=== PATIENT | male | born 1960 | race Caucasian/White ===

== ENCOUNTER 2019-04-26 06:49 | Day surgery (SDC) | payer BC, MEDICARE ==
[2019-04-21 11:08] VITALS: BMI 28.4
[~2019-04-26 06:49] MED LIST: LIDOCAINE 1% 20 ML VIAL (10MG/ML) FOR IV START INTRADERMA PRN
[2019-04-26 07:25] VITALS: TEMP 97.5
[2019-04-26 07:25] LABS: Glucose,Whole Blood 139 mg/dL (75-99)
[2019-04-26] MEDS: LACTATED RINGERS 1,000 ML IV SCH ×2 (07:25→08:07)
[2019-04-26] MEDS ORDERED: PROPOFOL 10 MG/ML 20 ML VIAL IV ONE (08:06)
--- NOTE | 2019-04-26 08:53 | P.PCN ---
Date of Procedure: 04/26/19 Procedure(s) Performed: Procedure: Total colonoscopy with polypectomy. Preoperative diagnosis: History of polyps for screening for neoplasia. Postoperative diagnosis: 1. Diverticulosis with no evidence of acute diverticulitis or strictures. 2. Two small polyps in the right colon snared. 3. Low-grade internal hemorrhoids not bleeding at the time of this exam. Preparation: HalfLytely prep. Sedation: Was provided by anesthesia. Brief clinical history: The patient is a 58-year-old male who is scheduled for this evaluation for screening for neoplasia because of history of polyps. His last exam was in 2013 and had 3 polyps polyps removed at that time. The patient has no abdominal complaints, bleeding or anemia. Procedure: With the patient on his left lateral decubitus position and after informed consent and adequate sedation, the perianal area was inspected and it did not show any fissures or fistulas. There were no masses felt on digital rectal examination. The Olympus CFH 190L video colonoscope was then inserted in the rectum in the usual fashion and advanced to the cecum. There were 2 small polyps in the right colon, 1 snared and retrieved by suction and one was fulgurated with the snare but there were no large polyps or cancer. Multiple diverticular orifices were seen scattered in the sigmoid and left side with no evidence of acute colitis or strictures. The mucosa appeared healthy. I retroflexed the endoscope in the rectum before the endoscope was withdrawn. Low-grade internal hemorrhoids were noted with no evidence of bleeding. The patient tolerated the procedure well. Plan: The patient was reassured. Discussed dietary measures. He will follow up with you as planned and I recommended repeat exam in 5 years.
[2019-04-26 09:00] VITALS: BP 120/84; PULSE 88; RESP 18
== END 2019-04-26 09:33 | disposition home or self-care (01) ==
LOC: ORWHC2ENDO 06:49
DX: Z12.11 Encounter for screening for malignant neoplasm of colon (principal); D12.2 Benign neoplasm of ascending colon; K64.8 Other hemorrhoids; K57.30 Diverticulosis of large intestine without perforation or abscess without bleeding; I10 Essential (primary) hypertension; F17.200 Nicotine dependence, unspecified, uncomplicated; E78.5 Hyperlipidemia, unspecified; E11.42 Type 2 diabetes mellitus with diabetic polyneuropathy; Z79.84 Long term (current) use of oral hypoglycemic drugs; Z86.010 Personal history of colon polyps; Z79.899 Other long term (current) drug therapy; Z79.82 Long term (current) use of aspirin
CPT/HCPCS: 88305; 45385; J2704

== ENCOUNTER → 2020-01-11 | Outpatient (CLI) | payer BC, MEDICARE ==
--- NOTE | 2020-01-11 12:55 | XR ---
EXAMINATION TYPE: XR foot complete RT DATE OF EXAM: 01/11/2020 CLINICAL HISTORY: Right foot pain with no known injury TECHNIQUE: Frontal, lateral, and oblique images of the right foot are obtained. COMPARISON: None FINDINGS: There is no acute fracture/dislocation evident in the right foot. The joint spaces in the right foot appear aligned. There is osteophytic spurring and joint space narrowing of the distal int erphalangeal joints with opposing surface sclerosis of the first metatarsophalangeal joint. Small matt ntar and mild Achilles heel spurs are seen. Osteophytic spurring of the dorsal midfoot. The overlying soft tissue appears unremarkable. IMPRESSION: There is no acute fracture or dislocation in the right foot. Mild arthropathy of the for efoot and midfoot. Small plantar and Achilles heel spurs.
== END | disposition home or self-care (01) ==
LOC: RADXRMAIN 12:18
PROVIDERS: ATTEND Family Medicine
DX: M12.871 Other specific arthropathies, not elsewhere classified, right ankle and foot (principal)

== ENCOUNTER → 2020-03-23 | Outpatient (CLI) | payer BC, MEDICARE | END | disposition home or self-care (01) | LOC: LABWHC1 10:07 | PROVIDERS: ATTEND Family Medicine | DX: R05 Cough (principal); E11.9 Type 2 diabetes mellitus without complications | CPT/HCPCS: 87635 ==

== ENCOUNTER → 2021-05-20 | Outpatient (CLI) | payer BC ==
--- NOTE | 2021-05-20 13:14 | XR ---
EXAMINATION TYPE: XR chest 2V DATE OF EXAM: 05/20/2021 COMPARISON: 11/04/2016 HISTORY: Shortness of breath with exertion TECHNIQUE: Frontal and lateral views of the chest are obtained. FINDINGS: There is no focal air space opacity, pleural effusion, or pneumothorax seen. The cardiac silhouette size is within normal limits. IMPRESSION: No acute cardiopulmonary process.
== END | disposition home or self-care (01) ==
LOC: RADXRMAIN 11:28
PROVIDERS: ATTEND Family Medicine
DX: R06.02 Shortness of breath (principal)
CPT/HCPCS: 71046

== ENCOUNTER → 2021-09-24 | Day surgery (SDC) | payer BC ==
[2021-09-23 11:12] VITALS: BMI 27.8
[~2021-09-24] MED LIST changes: +ALPRAZolam 0.25 MG TAB PO PRN; +ASPIRIN 325 MG TAB PO PRN; +IOPAMIDOL-250 100ML BTL INTRAARTER ONE; -LIDOCAINE 1% 20 ML VIAL (10MG/ML) FOR IV START INTRADERMA PRN; +LIDOCAINE 1% INJ 10MG/ML (20 ML MDV) ONE; +LIDOCAINE 1% INJ 10MG/ML (20 ML MDV) SQ ONE; +SODIUM CHLORIDE 0.9% 1,000 ML in EMPTY BAG 1 BAG IV ONE; +fentaNYL (PF) 50 MCG/ML 2 ML AMP IV ONE; +fentaNYL (PF) 50 MCG/ML 2 ML AMP ONE
[2021-09-24 07:51] VITALS: RESP 18; TEMP 98
[2021-09-24 07:51] LABS: Glucose,Whole Blood 148 mg/dL (75-99)
[2021-09-24 08:03] LABS: Basophils # (A) 0.1 k/uL (0-0.2); Basophils % (A) 1 %; Eosinophils # (A) 0.1 k/uL (0-0.7); Eosinophils % (A) 2 %; HCT 42.3 % (39.0-53.0); HGB 14.4 gm/dL (13.0-17.5); Lymphocytes # (A) 1.9 k/uL (1.0-4.8); Lymphocytes % (A) 20 %; MCH 31.8 pg (25.0-35.0); MCV 93.5 fL (80.0-100.0); Mean Platelet Volume 7.8; Monocytes # (A) 0.6 k/uL (0-1.0); Monocytes % (A) 6 %; Neutrophils # (A) 6.6 k/uL (1.3-7.7); Neutrophils % (A) 69 %; Platelet Count 282 k/uL (150-450); RBC 4.52 m/uL (4.30-5.90); RDW 12.1 % (11.5-15.5); WBC 9.5 k/uL (3.8-10.6)
[2021-09-24 08:15] LABS: African American GFR (CKD) >90 (>60 ml/min/1.73 sqM); Anion Gap 11 mmol/L; Blood Urea Nitrogen 13 mg/dL (9-20); Carbon Dioxide 26 mmol/L (22-30); Chloride 103 mmol/L (98-107); Glucose 151 mg/dL (74-99); Non-African American GFR(CKD) >90 (>60 ml/min/1.73 sqM); Potassium 4.3 mmol/L (3.5-5.1); Sodium 140 mmol/L (137-145)
[2021-09-24] MEDS: MIDAZOLAM 2 MG/2 ML VIAL IV ONE ×2 (08:39→08:45)
--- NOTE | 2021-09-24 09:15 | P.OP ---
Date of Procedure: 09/24/21 Description of Procedure: Preoperative diagnosis: Bilateral lower extremity claudication worse than the left, [place] classification 3 Postop diagnosis: Disabling claudication [place] classification 3, left common iliac artery focal occlusion Procedure: Aortogram with bilateral lower extremity runoffs via left radial artery access under ultrasound guidance Surgeon: Shen Anesthesia: Moderate sedation times 19 minutes Fluoroscopy time: 2.3 minutes Estimated blood loss: 5 mL Complications: None Condition: Stable Findings: Aorta: Patent without any evidence of significant calcification or stenosis. Bilateral renal arteries are patent without stenosis Iliacs: Right common, internal and external iliac arteries are widely patent with mild atherosclerotic disease without any significant stenosis. Left common iliac artery is occluded just after the takeoff with reconstitution immediately to the external iliac artery. External iliac artery has some atherosclerotic disease without any significant stenosis. The internal iliac artery appears to be occluded at the takeoff. Femorals: Right common femoral, profundus and superficial femoral artery are widely patent without any significant calcification or stenosis. Left common femoral artery has mild stenosis noted just at the distal aspect prior to takeoff of the profundus or superficial femoral artery. Superficial femoral and profundus femoris arteries are widely patent without any significant stenosis or calcification. Popliteal: Widely patent with no evidence of calcification or stenosis. Tibials: Bilateral tibioperoneal trunks are patent with at the stenotic disease noted throughout. Three-vessel runoff bilaterally to the ankle. Operative narrative: After written informed consent was obtained the patient all risks benefits competitions were described the patient is brought to the Pipe Supervisor and laid in a supine position. The area of the left wrist was prepped and draped in the usual sterile fashion. Local anesthesia with moderate sedation was performed with continuous pulse ox monitoring and EKG monitoring. Utilizing ultrasound the left radial artery was visualized and shown to be patent without any significant plaque. Utilizing a multipurpose needle under ultrasound guidance the artery was accessed. Guidewire was placed followed by 5-Hungarian sheath. 035 Glidewire was then placed into the aorta followed by pigtail catheter. Angiogram was then obtained of the aorta. Catheter was then placed at the bifurcation and lower extremity runoffs were obtained. Once completed all guidewires, catheters and sheaths were removed and pressure was placed for hemostasis. Patient tolerated procedure well was sent to PACU for recovery. Patient will require left common iliac artery balloon angioplasty and stenting. There is a flush occlusion noted which may cause some difficulty retrograde therefore Up & Over or brachial artery access may be beneficial. Plan - Discharge Summary Discharge Rx Participant: No New Discharge Prescriptions: No Action oxyCODONE-APAP 10-325MG [Percocet 10-325 mg] 1 tab PO Q4HR PRN PRN Reason: Pain Rosuvastatin [Crestor] 20 mg PO HS Aspirin [Adult Low Dose Aspirin EC] 81 mg PO HS sitaGLIPtin [Januvia] 50 mg PO DAILY Losartan Potassium 100 mg PO DAILY Empagliflozin/Metformin HCl [Synjardy 5-500 mg Tablet] 1 each PO DAILY Umeclidinium Brm/Vilanterol Tr [Anoro Ellipta 62.5-25 Mcg INH] 1 puff INHALATION DAILY Albuterol Sulfate [Proventil Hfa] 1 puff INHALATION Q4-6H PRN PRN Reason: Wheezing Gabapentin [Neurontin] 400 mg PO TID Icosapent Ethyl [Vascepa] 1 gm PO BID Ammonium Lactate Cream [Lac-Hydrin 12% Cream] 1 applic TOPICAL DIRECTED Sildenafil Citrate [Viagra] 100 mg PO ONCE PRN PRN Reason: ed Diltiazem HCl [Diltiazem HCl 12Hr ER] 120 mg PO Q12HR hydroCHLOROthiazide 25 mg PO DAILY amLODIPine [Norvasc] 5 mg PO DAILY Discharge Medication List Aspirin [Adult Low Dose Aspirin EC] 81 mg PO HS 03/24/19 [History] Rosuvastatin [Crestor] 20 mg PO HS 03/24/19 [History] oxyCODONE-APAP 10-325MG [Percocet 10-325 mg] 1 tab PO Q4HR PRN 03/24/19 [History] Albuterol Sulfate [Proventil Hfa] 1 puff INHALATION Q4-6H PRN 09/23/21 [History] Ammonium Lactate Cream [Lac-Hydrin 12% Cream] 1 applic TOPICAL DIRECTED 09/23/21 [History] Diltiazem HCl [Diltiazem HCl 12Hr ER] 120 mg PO Q12HR 09/23/21 [History] Empagliflozin/Metformin HCl [Synjardy 5-500 mg Tablet] 1 each PO DAILY 09/23/21 [History] Gabapentin [Neurontin] 400 mg PO TID 09/23/21 [History] Icosapent Ethyl [Vascepa] 1 gm PO BID 09/23/21 [History] Losartan Potassium 100 mg PO DAILY 09/23/21 [History] Sildenafil Citrate [Viagra] 100 mg PO ONCE PRN 09/23/21 [History] Umeclidinium Brm/Vilanterol Tr [Anoro Ellipta 62.5-25 Mcg INH] 1 puff INHALATION DAILY 09/23/21 [History] hydroCHLOROthiazide 25 mg PO DAILY 09/23/21 [History] sitaGLIPtin [Januvia] 50 mg PO DAILY 09/23/21 [History] amLODIPine [Norvasc] 5 mg PO DAILY 09/24/21 [History] Follow up Appointment(s)/Referral(s): Aashish Gotti DO [STAFF PHYSICIAN] - 2 Weeks Discharge Disposition: HOME SELF-CARE
--- NOTE | 2021-09-24 10:20 | IR ---
EXAMINATION TYPE: IR angio abdominal w runoff DATE OF EXAM: 09/24/2021 CLINICAL HISTORY: PVD. TECHNIQUE: Fluoroscopy. COMPARISON: None. FINDINGS: Fluoroscopic guidance was provided during abdominal angiogram with lower extremity runoff procedure performed by Dr. Gotti. A total of 27.2 minutes of fluoroscopic time was utilized during the procedure and 186 spot images are acquired. Significant stenosis at origin of the left common il iac artery is felt present. Please refer to procedure note for further details as I was not present n or performed procedure. IMPRESSION: As Above.
[2021-09-24 12:01] VITALS: BP 118/76; PULSE 98
== END | disposition home or self-care (01) ==
LOC: CATHCVL 07:25
PROVIDERS: ATTEND Surgery
DX: I70.213 Atherosclerosis of native arteries of extremities with intermittent claudication, bilateral legs (principal); D64.9 Anemia, unspecified; M19.90 Unspecified osteoarthritis, unspecified site; Z85.038 Personal history of other malignant neoplasm of large intestine; I65.23 Occlusion and stenosis of bilateral carotid arteries; E11.40 Type 2 diabetes mellitus with diabetic neuropathy, unspecified; N52.9 Male erectile dysfunction, unspecified; Z20.822 Contact with and (suspected) exposure to COVID-19; E78.00 Pure hypercholesterolemia, unspecified; E78.5 Hyperlipidemia, unspecified; Z87.442 Personal history of urinary calculi; I10 Essential (primary) hypertension; J44.9 Chronic obstructive pulmonary disease, unspecified; Z98.890 Other specified postprocedural states; F17.210 Nicotine dependence, cigarettes, uncomplicated; Z79.84 Long term (current) use of oral hypoglycemic drugs; Z79.82 Long term (current) use of aspirin; Z79.899 Other long term (current) drug therapy
CPT/HCPCS: 36200; 75625; 75716; 76937; 80048; 85025; 87635; C1769 ×2; C1894; J2250; J2001; J3010; Q9966

== ENCOUNTER 2021-10-14 05:52 | Day surgery (SDC) | payer BC ==
[2021-10-10 17:35] VITALS: BMI 27.2
[~2021-10-14 05:52] MED LIST changes: -ALPRAZolam 0.25 MG TAB PO PRN; -IOPAMIDOL-250 100ML BTL INTRAARTER ONE; -LIDOCAINE 1% INJ 10MG/ML (20 ML MDV) ONE; -LIDOCAINE 1% INJ 10MG/ML (20 ML MDV) SQ ONE; -fentaNYL (PF) 50 MCG/ML 2 ML AMP IV ONE; -fentaNYL (PF) 50 MCG/ML 2 ML AMP ONE
[2021-10-14] MEDS ORDERED: SODIUM CHLORIDE 0.9% 1,000 ML IV ONE (06:08)
[2021-10-14 06:20] LABS: Glucose,Whole Blood 155 mg/dL (75-99)
[2021-10-14 06:31] LABS: Basophils % (A) 1 %; Eosinophils # (A) 0.2 k/uL (0-0.7); Eosinophils % (A) 2 %; HCT 39.6 % (39.0-53.0); HGB 13.8 gm/dL (13.0-17.5); Lymphocytes # (A) 1.8 k/uL (1.0-4.8); Lymphocytes % (A) 20 %; MCH 31.6 pg (25.0-35.0); MCHC 34.9 g/dL (31.0-37.0); MCV 90.4 fL (80.0-100.0); Mean Platelet Volume 7.4; Monocytes # (A) 0.5 k/uL (0-1.0); Monocytes % (A) 6 %; Neutrophils # (A) 6.4 k/uL (1.3-7.7); Neutrophils % (A) 72 %; Platelet Count 349 k/uL (150-450); RBC 4.38 m/uL (4.30-5.90); RDW 12.5 % (11.5-15.5); WBC 8.9 k/uL (3.8-10.6)
[2021-10-14 06:36] VITALS: RESP 16; TEMP 99.4
[2021-10-14 06:42] LABS: African American GFR (CKD) >90 (>60 ml/min/1.73 sqM); Anion Gap 13 mmol/L; Blood Urea Nitrogen 18 mg/dL (9-20); Calcium 9.8 mg/dL (8.4-10.2); Carbon Dioxide 26 mmol/L (22-30); Chloride 101 mmol/L (98-107); Glucose 161 mg/dL (74-99); Non-African American GFR(CKD) 87 (>60 ml/min/1.73 sqM); Potassium 3.3 mmol/L (3.5-5.1); Sodium 140 mmol/L (137-145)
[2021-10-14] MEDS ORDERED: HEPARIN SODIUM 1,000 UN/ML (10ML VL) ONE (07:53)
[2021-10-14] MEDS ORDERED: LIDOCAINE 1% INJ 10MG/ML (20 ML MDV) ONE (07:54)
[2021-10-14] MEDS ORDERED: LIDOCAINE 1% INJ 10MG/ML (20 ML MDV) SQ ONE (07:59)
[2021-10-14] MEDS: MIDAZOLAM 2 MG/2 ML VIAL IV ONE ×2 (08:00→08:29)
[2021-10-14] MEDS ORDERED: HYDROmorphone 1 MG/ML 1 ML SYRINGE IVP ONE (08:00)
[2021-10-14] MEDS ORDERED: IOPAMIDOL-250 100ML BTL INTRAARTER ONE ×2 (09:23→09:32)
[2021-10-14] MEDS ORDERED: CLOPIDOGREL 75 MG TAB ONE (09:40)
[2021-10-14] MEDS ORDERED: CLOPIDOGREL 75 MG TAB PO ONE (09:42)
[2021-10-14 15:31] VITALS: BP 129/68; PULSE 88
--- NOTE | 2021-10-14 17:18 | P.OP ---
Date of Procedure: 10/14/21 Preoperative Diagnosis: Left lower extremity disabiling claudication [place] classification 3 Left common iliac artery occlusion Postoperative Diagnosis: Same Procedure(s) Performed: 1. Ultrasound guided bilateral femoral artery access 2. Aortogram with selective iliofemoral angiograms 3. PTBA of the left common iliac artery 4. Kissing stents of bilateral common iliac arteries 5. Percutaneous closure bilateral femoral arteries with Vascade Anesthesia: local, other (conscious sedation x 96mins) Surgeon: Aashish Gotti Estimated Blood Loss (ml): 10 Pathology: none sent Condition: stable Disposition: same day Indications for Procedure: 61 year old gentleman with claudication and previous aortogram with runoff demonstrating left common iliac artery occlusion. He has been having increased pain and discussion for possible intervention with iliac stenting was discussed and he presents for revascularization today. Description of Procedure: After written and informed consent was obtained the patient all risks, benefits and competitions were described the patient is brought to the Engraving Operator and laid in supine position. The area of the groins were prepped and draped in usual sterile fashion. Timeout was performed in normal fashion. Utilizing ultrasound the left common femoral artery was located and shown to be patent with some posterior calcification noted. Utilizing a multipurpose needle and under direct physician of ultrasound the artery was cannulated and a 6-Sammarinese sheath was placed utilizing Seldinger technique. Retrograde angiogram was then obtained demonstrating occlusion of the common iliac artery. 035 Glidewire was then placed followed by a quick cross catheter and attempt to cross the lesion was performed. Were unable across the lesion from retrograde accessed and there was a small dissection at the site of occlusion and therefore ultrasound was then utilized to access the right common femoral artery. Right common femoral artery demonstrated some calcification of the posterior wall. Utilizing ultrasound and a multipurpose needle 6-Sammarinese sheath was then placed in normal fashion. Patient was administered heparin and followed with serial ACTs. Retrograde angiogram was once again obtained demonstrating patent common iliac artery with patent aorta with some distal aortic stenosis and atherosclerotic disease. Both 5 Glidewire followed by a RBI catheter was then placed and the lesion was attempted to be crossed from an antegrade fashion. The lesion was crossed and wire was placed into the common femoral artery on the left. Quick cross catheter was then placed and angiogram was obtained demonstrating good intraluminal access. Balloon angioplasty was then performed with a 6 x 20 mm balloon at the occlusive site of the common iliac artery. Once completed attempt to cross lesion from a retrograde fashion was once again attempted without ability cross and dissection flaps still present. At that time a snare catheter was utilized and the Up & Over wire was snared. The quick cross cath eter was then placed in the left femoral sheath up and over and attempt to get into the aortic lumen was once again performed. We're unable to get into the lumen at that time and therefore a mike wire was placed on the right and extended into the aorta. Aortogram was obtained demonstrating good intraluminal access. Balloon angioplasty of the right common iliac at the site of dissection was then performed and attempt again was placed to get the wire up the aorta. Utilizing the 6 x 20 mm balloon the common iliac artery was occluded and the wire was then placed against the balloon and balloon was utilized to redirect the wire into the aorta. Once the wire was in the aorta was followed with a quick cross catheter and aortogram was obtained demonstrating good intraluminal access. Both wires were then upsized to 035 Glidewire. Kissing balloon angioplasties were then performed with 7 x 40 mm balloon across the lesion on the left and into the distal aorta on the right. Once completed angiogram was obtained demonstrating improvement of the lumen but a large calcified area and stenosis was still present at the bifurcation. Due to this it was determined to place kissing stents. Two 7 x 27 mm balloon expandable VISI pro stents were then chosen and deployed in a kissing fashion up into the distal aspect of the aorta. Once completed final angiogram was obtained demonstrating good brisk flow through both iliac stents. Patient had palpable femoral pulses at the conclusion of the procedure. All wires and guidewires and catheters were removed. Sheath were then removed over a Vascade closure devices. The patient tolerated the procedure well and had palpable DP and PT pulses at the conclusion of the procedure. Plan - Discharge Summary Discharge Rx Participant: No New Discharge Prescriptions: No Action oxyCODONE-APAP 10-325MG [Percocet 10-325 mg] 1 tab PO Q4HR PRN PRN Reason: Pain Rosuvastatin [Crestor] 20 mg PO HS Aspirin [Adult Low Dose Aspirin EC] 81 mg PO HS sitaGLIPtin [Januvia] 50 mg PO DAILY Losartan Potassium 100 mg PO DAILY Empagliflozin/Metformin HCl [Synjardy 5-500 mg Tablet] 1 each PO DAILY Umeclidinium Brm/Vilanterol Tr [Anoro Ellipta 62.5-25 Mcg INH] 1 puff INHALATION DAILY Albuterol Sulfate [Proventil Hfa] 1 puff INHALATION Q4-6H PRN PRN Reason: Wheezing Gabapentin [Neurontin] 400 mg PO TID Icosapent Ethyl [Vascepa] 1 gm PO BID Ammonium Lactate Cream [Lac-Hydrin 12% Cream] 1 applic TOPICAL DIRECTED Sildenafil Citrate [Viagra] 100 mg PO ONCE PRN PRN Reason: ed Diltiazem HCl [Diltiazem HCl 12Hr ER] 120 mg PO Q12HR hydroCHLOROthiazide 25 mg PO DAILY amLODIPine [Norvasc] 5 mg PO DAILY Discharge Medication List Aspirin [Adult Low Dose Aspirin EC] 81 mg PO HS 03/24/19 [History] Rosuvastatin [Crestor] 20 mg PO HS 03/24/19 [History] oxyCODONE-APAP 10-325MG [Percocet 10-325 mg] 1 tab PO Q4HR PRN 03/24/19 [History] Albuterol Sulfate [Proventil Hfa] 1 puff INHALATION Q4-6H PRN 09/23/21 [History] Ammonium Lactate Cream [Lac-Hydrin 12% Cream] 1 applic TOPICAL DIRECTED 09/23/21 [History] Diltiazem HCl [Diltiazem HCl 12Hr ER] 120 mg PO Q12HR 09/23/21 [History] Empagliflozin/Metformin HCl [Synjardy 5-500 mg Tablet] 1 each PO DAILY 09/23/21 [History] Gabapentin [Neurontin] 400 mg PO TID 09/23/21 [History] Icosapent Ethyl [Vascepa] 1 gm PO BID 09/23/21 [History] Losartan Potassium 100 mg PO DAILY 09/23/21 [History] Sildenafil Citrate [Viagra] 100 mg PO ONCE PRN 09/23/21 [History] Umeclidinium Brm/Vilanterol Tr [Anoro Ellipta 62.5-25 Mcg INH] 1 puff INHALATION DAILY 09/23/21 [History] hydroCHLOROthiazide 25 mg PO DAILY 09/23/21 [History] sitaGLIPtin [Januvia] 50 mg PO DAILY 09/23/21 [History] amLODIPine [Norvasc] 5 mg PO DAILY 09/24/21 [History] Follow up Appointment(s)/Referral(s): Aashish Gotti DO [STAFF PHYSICIAN] - 10/22/21 3:30 pm Patient Instructions/Handouts: Procedural Sedation (ED), Peripheral Vascular Stent Placement (DC) Activity/Diet/Wound Care/Special Instructions: No flexing/bending/pushing/pulling/lifting greater than 5 pounds x5 days No driving x3 days No submersion of right and left groins in pools/hot tubs/bath tubs 3 days Fall risk/safety precautions Encourage fluids x2 days Follow up No changes with medications- hold Metformin x48 hours Discharge Disposition: HOME SELF-CARE
--- NOTE | 2021-10-15 09:44 | IR ---
EXAMINATION TYPE: IR stent intravas non coronary DATE OF EXAM: 10/14/2021 COMPARISON: NONE HISTORY: Fluoroscopy time. Fluoroscopy was provided to the referring clinician.
== END 2021-10-14 15:05 | disposition home or self-care (01) ==
LOC: CATHCVL 05:52
PROVIDERS: ATTEND Surgery
DX: I70.213 Atherosclerosis of native arteries of extremities with intermittent claudication, bilateral legs (principal); E11.51 Type 2 diabetes mellitus with diabetic peripheral angiopathy without gangrene; E11.40 Type 2 diabetes mellitus with diabetic neuropathy, unspecified; D64.9 Anemia, unspecified; M19.90 Unspecified osteoarthritis, unspecified site; Z85.038 Personal history of other malignant neoplasm of large intestine; Z20.822 Contact with and (suspected) exposure to COVID-19; I65.29 Occlusion and stenosis of unspecified carotid artery; J44.9 Chronic obstructive pulmonary disease, unspecified; N52.9 Male erectile dysfunction, unspecified; E78.00 Pure hypercholesterolemia, unspecified; E78.5 Hyperlipidemia, unspecified; I10 Essential (primary) hypertension; N20.0 Calculus of kidney; F17.210 Nicotine dependence, cigarettes, uncomplicated
CPT/HCPCS: 37211; 37221 ×2; 80048; 85025; 87635; C1894 ×2; C1773; C1769 ×5; C1725 ×2; C1887; C1876; C1760; J2250; J2001; J1170; J1644; Q9966; 37223

== ENCOUNTER → 2022-05-24 | Outpatient (CLI) | payer BC ==
--- NOTE | 2022-05-24 11:22 | MR ---
EXAMINATION TYPE: MR lumbar spine wo con DATE OF EXAM: 05/24/2022 COMPARISON: 02/10/2014 HISTORY: M54.31 SCIATICA, RIGHT SIDE TECHNIQUE: Multiplanar, multisequence images of the lumbar spine were acquired without IV contrast. 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 L1-L2: Normal disc appearance without desiccation. No herniation, protrusion or disc bulging. No ca nal stenosis is present. Foramina are patent bilaterally. L2-L3: Normal disc appearance without desiccation. No herniation, protrusion or disc bulging. No ca nal stenosis is present. Foramina are patent bilaterally. L3-L4: Mild disc desiccation. Posterior disc bulge. Mild central stenosis. Foramina are patent. L4-L5: Moderate disc desiccation. Moderate posterior disc bulge. Hypertrophy of the ligamentum flavum and facet joint arthropathy contribute to moderate to severe central stenosis. Bilateral foraminal e ncroachment seen. L5-S1: Moderate disc desiccation. Posterior disc bulge with partially encapsulating spur. Effacement ventral thecal sac. Bilateral lateral recess stenosis without central stenosis. Moderate right greate r than left neural foraminal encroachment. Lumbar segments are intact. No paraspinal masses are identified. Conus medullaris has a normal appe arance. IMPRESSION: 1. Multilevel degenerative disc disease. 2. 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 There is progressive central stenosis identified at L3-4 and L4-5.
== END | disposition home or self-care (01) ==
LOC: RADMRIMAIN 09:56
PROVIDERS: ATTEND Family Medicine
DX: M51.16 Intervertebral disc disorders with radiculopathy, lumbar region (principal); M99.73 Connective tissue and disc stenosis of intervertebral foramina of lumbar region
CPT/HCPCS: 72148

== ENCOUNTER 2022-08-18 14:39 | Emergency (ER) | payer BC, MEDICARE ==
[2022-08-18 15:15] VITALS: BP 134/84; PULSE 93; RESP 20; TEMP 97.9
[2022-08-18 15:35] LABS: Basophils % (A) 1 %; Eosinophils # (A) 0.2 k/uL (0-0.7); Eosinophils % (A) 2 %; HGB 12.7 gm/dL (13.0-17.5); Lymphocytes # (A) 0.8 k/uL (1.0-4.8); Lymphocytes % (A) 10 %; MCH 34.6 pg (25.0-35.0); MCHC 35.2 g/dL (31.0-37.0); MCV 98.2 fL (80.0-100.0); Mean Platelet Volume 7.8; Monocytes # (A) 0.4 k/uL (0-1.0); Monocytes % (A) 6 %; Neutrophils # (A) 6.1 k/uL (1.3-7.7); Neutrophils % (A) 81 %; Platelet Count 269 k/uL (150-450); RBC 3.67 m/uL (4.30-5.90); RDW 13.5 % (11.5-15.5); WBC 7.6 k/uL (3.8-10.6)
[2022-08-18 15:46] LABS: ALT 44 U/L (4-49); AST 42 U/L (17-59); African American GFR (CKD) >90 (>60 ml/min/1.73 sqM); Albumin 4.5 g/dL (3.5-5.0); Alkaline Phosphatase 67 U/L (38-126); Anion Gap 11 mmol/L; Blood Urea Nitrogen 9 mg/dL (9-20); Calcium 9.7 mg/dL (8.4-10.2); Carbon Dioxide 26 mmol/L (22-30); Chloride 102 mmol/L (98-107); Glucose 99 mg/dL (74-99); Magnesium 1.7 mg/dL (1.6-2.3); Non-African American GFR(CKD) >90 (>60 ml/min/1.73 sqM); Sodium 139 mmol/L (137-145); Total Bilirubin 0.5 mg/dL (0.2-1.3); Total Protein 6.5 g/dL (6.3-8.2)
[2022-08-18 15:47] LABS: INR 0.9 (<1.2); Partial Thromboplastin Time 23.9 sec (22.0-30.0); Prothrombin Time 10.1 sec (9.0-12.0)
--- NOTE | 2022-08-18 19:31 | ED ---
General Adult HPI - General Chief complaint: Weakness Stated complaint: nausea, weight loss Time Seen by Provider: 08/18/22 19:13 Source: patient, RN notes reviewed Mode of arrival: ambulatory Limitations: no limitations - History of Present Illness Initial comments: This is a pleasant 61-year-old male who presents to the emergency department complaining of generalized tremor and generalized weakness. Patient does have a history of chronic pain to include chronic back pain. However he states there is no pain associated with this. Patient states he has had nausea, occasional vomiting, and poor nutritional intake going on for a few weeks. I do note the patient is drinking coffee in the waiting room at the time I initially see him. Patient states that 2 days ago he started developing a tremor which is affecting both upper extremities. Patient admits to drinking alcohol but states he only drinks a few beers per day. He denies any previous liver or kidney problems. No other new medications or ingestions. Denies illicit drug abuse. No headache, no fever or chills, no changes in vision or hearing, no sore throat or difficulty with speech, no neck pain, no chest pain or shortness of breath, no abdominal pain, no nausea or vomiting, no changes in urination or bowel movements, no numbness or tingling, no extremity pain, no skin rashes or lesions. Past medical, surgical, social, and family history reviewed. - Related Data Home Medications Medication Instructions Recorded Confirmed Aspirin [Adult Low Dose Aspirin EC] 81 mg PO HS 03/24/19 10/14/21 Rosuvastatin [Crestor] 20 mg PO HS 03/24/19 10/14/21 oxyCODONE-APAP 10-325MG [Percocet 1 tab PO Q4HR PRN 03/24/19 10/14/21 10-325 mg] Albuterol Sulfate [Proventil Hfa] 1 puff INHALATION Q4-6H PRN 09/23/21 10/14/21 Ammonium Lactate Cream [Lac-Hydrin 1 applic TOPICAL DIRECTED 09/23/21 10/14/21 12% Cream] Empagliflozin/Metformin HCl 1 each PO DAILY 09/23/21 10/14/21 [Synjardy 5-500 mg Tablet] Gabapentin [Neurontin] 400 mg PO TID 09/23/21 10/14/21 Losartan Potassium 100 mg PO DAILY 09/23/21 10/14/21 Sildenafil Citrate [Viagra] 100 mg PO ONCE PRN 09/23/21 10/14/21 Umeclidinium Brm/Vilanterol Tr 1 puff INHALATION DAILY 09/23/21 10/14/21 [Anoro Ellipta 62.5-25 Mcg INH] dilTIAZem HCL [Diltiazem HCl 12Hr 120 mg PO Q12HR 09/23/21 10/14/21 ER] hydroCHLOROthiazide 25 mg PO DAILY 09/23/21 10/14/21 icosapent ethyL [Vascepa] 1 gm PO BID 09/23/21 10/14/21 sitaGLIPtin [Januvia] 50 mg PO DAILY 09/23/21 10/14/21 amLODIPine [Norvasc] 5 mg PO DAILY 09/24/21 10/14/21 Allergies Allergy/AdvReac Type Severity Reaction Status Date / Time No Known Allergies Allergy Unverified 08/18/22 15:15 Review of Systems ROS Statement: Those systems with pertinent positive or pertinent negative responses have been documented in the HPI. ROS Other: All systems not noted in ROS Statement are negative. Past Medical History Past Medical History: COPD, CVA/TIA, Diabetes Mellitus, Hypertension, Osteoarthritis (OA) Additional Past Medical History / Comment(s): hx of colon polyps, herniated discs with back pain, neuropathy, tia, hemorrhoids, pain in legs. History of Any Multi-Drug Resistant Organisms: None Reported Past Surgical History: Orthopedic Surgery Additional Past Surgical History / Comment(s): colonoscopy, left elbow benign growth removed, varicose veins removed right leg, aortogram 09-24-21 Past Anesthesia/Blood Transfusion Reactions: No Reported Reaction Past Psychological History: No Psychological Hx Reported Smoking Status: Current every day smoker Past Alcohol Use History: Daily Past Drug Use History: None Reported - Past Family History Sister(s) Family Medical History: Cancer General Exam - General Exam Comments Initial Comments: Patient does not appear to be in any significant distress at the time I'm seeing him. Vital signs reviewed. Patient does not appear to be ill or toxic. Patient does have a notable generalized tremor, appears to be both resting and with intent. Effexor also the upper extremities. Cranial nerves II through XII grossly intact otherwise. Limitations: no limitations General appearance: alert, in no apparent distress Head exam: Present: atraumatic, normocephalic, normal inspection Eye exam: Present: normal appearance, PERRL, EOMI. Absent: scleral icterus, conjunctival injection, periorbital swelling ENT exam: Present: normal exam, normal oropharynx, mucous membranes moist, normal external ear exam Neck exam: Present: normal inspection, full ROM. Absent: tenderness, meningismus, lymphadenopathy Respiratory exam: Present: normal lung sounds bilaterally. Absent: respiratory distress, wheezes, rales, rhonchi, stridor Cardiovascular Exam: Present: regular rate, normal rhythm, normal heart sounds. Absent: systolic murmur, diastolic murmur, rubs, gallop, clicks GI/Abdominal exam: Present: soft, normal bowel sounds. Absent: distended, tenderness, guarding, rebound, rigid Extremities exam: Present: normal inspection, full ROM, normal capillary refill. Absent: tenderness, pedal edema, joint swelling, calf tenderness Back exam: Present: normal inspection Neurological exam: Present: alert, oriented X3, CN II-XII intact, normal gait, other (Generalized tremor). Absent: motor sensory deficit Psychiatric exam: Present: normal affect, normal mood Skin exam: Present: warm, dry, intact, normal color. Absent: rash Course Vital Signs 08/18/22 15:12 Temperature 97.9 F Pulse Rate 93 Respiratory 20 Rate Blood Pressure 134/84 O2 Sat by Pulse 99 Oximetry - Reevaluation(s) Reevaluation #1: 08/18/22 21:19 Patient reevaluated, patient resting comfortably in the room. Patient notably does not have as much tremors had in the waiting room. No vomiting. Patient able to hold down fluids. EKG Findings - EKG Comments: EKG Findings:: EKG done at EKG done at 1516 reveals sinus rhythm with occasional supraventricular PACs. Right bundle-branch block, rate of 87, QRS duration 125 ms, remainder of the intervals are normal. Borderline right axis deviation. No evidence of acute ST or T-wave changes. No comparison study reviewed the ED attending physician. Medical Decision Making - Medical Decision Making Generalized weakness, poor nutritional intake with intermittent nausea and vomiting going on for quite some time. Tremor started 2 days ago. This does raise a suspicion of nutritional deficiency. Other etiologies less likely. Patient does not appear to have any focal neurological deficits. Patient reevaluated prior to discharge and is in no acute distress. I'm going to give the patient short course of Ativan and Zofran. Patient to follow-up with his regular physician and neurology. The case was discussed in detail with ED attending physician. Presentation, findings, treatment plan discussed in detail. Procurement Manager Dr. Pritchard - Lab Data Result diagrams: 08/18/22 20:08 08/18/22 20:08 Lab Results 08/18/22 08/18/22 08/18/22 Range/Units 15:16 15:16 15:16 WBC 7.6 (3.8-10.6) k/uL RBC 3.67 L (4.30-5.90) m/uL Hgb 12.7 L (13.0-17.5) gm/dL Hct 36.0 L (39.0-53.0) % MCV 98.2 (80.0-100.0) fL MCH 34.6 (25.0-35.0) pg MCHC 35.2 (31.0-37.0) g/dL RDW 13.5 (11.5-15.5) % Plt Count 269 (150-450) k/uL MPV 7.8 Neutrophils % 81 % Lymphocytes % 10 % Monocytes % 6 % Eosinophils % 2 % Basophils % 1 % Neutrophils # 6.1 (1.3-7.7) k/uL Lymphocytes # 0.8 L (1.0-4.8) k/uL Monocytes # 0.4 (0-1.0) k/uL Eosinophils # 0.2 (0-0.7) k/uL Basophils # 0.0 (0-0.2) k/uL PT 10.1 (9.0-12.0) sec INR 0.9 (<1.2) APTT 23.9 (22.0-30.0) sec Sodium 139 (137-145) mmol/L Potassium 4.0 (3.5-5.1) mmol/L Chloride 102 (98-107) mmol/L Carbon Dioxide 26 (22-30) mmol/L Anion Gap 11 mmol/L BUN 9 (9-20) mg/dL Creatinine 0.66 (0.66-1.25) mg/dL Est GFR (CKD-EPI)AfAm >90 (>60 ml/min/1.73 sqM) Est GFR (CKD-EPI)NonAf >90 (>60 ml/min/1.73 sqM) Glucose 99 (74-99) mg/dL Calcium 9.7 (8.4-10.2) mg/dL Phosphorus (2.5-4.5) mg/dL Magnesium 1.7 (1.6-2.3) mg/dL Total Bilirubin 0.5 (0.2-1.3) mg/dL GGT (15-73) U/L AST 42 (17-59) U/L ALT 44 (4-49) U/L Alkaline Phosphatase 67 (38-126) U/L Ammonia (<30) umol/L Troponin I (0.000-0.034) ng/mL Total Protein 6.5 (6.3-8.2) g/dL Albumin 4.5 (3.5-5.0) g/dL 08/18/22 08/18/22 08/18/22 Range/Units 15:16 20:08 20:08 WBC 8.0 (3.8-10.6) k/uL RBC 3.80 L (4.30-5.90) m/uL Hgb 12.7 L (13.0-17.5) gm/dL Hct 37.1 L (39.0-53.0) % MCV 97.6 (80.0-100.0) fL MCH 33.5 (25.0-35.0) pg MCHC 34.3 (31.0-37.0) g/dL RDW 14.0 (11.5-15.5) % Plt Count 282 (150-450) k/uL MPV 8.1 Neutrophils % 78 % Lymphocytes % 12 % Monocytes % 6 % Eosinophils % 2 % Basophils % 1 % Neutrophils # 6.3 (1.3-7.7) k/uL Lymphocytes # 0.9 L (1.0-4.8) k/uL Monocytes # 0.5 (0-1.0) k/uL Eosinophils # 0.1 (0-0.7) k/uL Basophils # 0.0 (0-0.2) k/uL PT 10.1 (9.0-12.0) sec INR 0.9 (<1.2) APTT 24.0 (22.0-30.0) sec Sodium (137-145) mmol/L Potassium (3.5-5.1) mmol/L Chloride (98-107) mmol/L Carbon Dioxide (22-30) mmol/L Anion Gap mmol/L BUN (9-20) mg/dL Creatinine (0.66-1.25) mg/dL Est GFR (CKD-EPI)AfAm (>60 ml/min/1.73 sqM) Est GFR (CKD-EPI)NonAf (>60 ml/min/1.73 sqM) Glucose (74-99) mg/dL Calcium (8.4-10.2) mg/dL Phosphorus (2.5-4.5) mg/dL Magnesium (1.6-2.3) mg/dL Total Bilirubin (0.2-1.3) mg/dL GGT (15-73) U/L AST (17-59) U/L ALT (4-49) U/L Alkaline Phosphatase (38-126) U/L Ammonia (<30) umol/L Troponin I <0.012 (0.000-0.034) ng/mL Total Protein (6.3-8.2) g/dL Albumin (3.5-5.0) g/dL 08/18/22 08/18/22 08/18/22 Range/Units 20:08 20:08 20:08 WBC (3.8-10.6) k/uL RBC (4.30-5.90) m/uL Hgb (13.0-17.5) gm/dL Hct (39.0-53.0) % MCV (80.0-100.0) fL MCH (25.0-35.0) pg MCHC (31.0-37.0) g/dL RDW (11.5-15.5) % Plt Count (150-450) k/uL MPV Neutrophils % % Lymphocytes % % Monocytes % % Eosinophils % % Basophils % % Neutrophils # (1.3-7.7) k/uL Lymphocytes # (1.0-4.8) k/uL Monocytes # (0-1.0) k/uL Eosinophils # (0-0.7) k/uL Basophils # (0-0.2) k/uL PT (9.0-12.0) sec INR (<1.2) APTT (22.0-30.0) sec Sodium 140 (137-145) mmol/L Potassium 3.7 (3.5-5.1) mmol/L Chloride 104 (98-107) mmol/L Carbon Dioxide 24 (22-30) mmol/L Anion Gap 12 mmol/L BUN 8 L (9-20) mg/dL Creatinine 0.63 L (0.66-1.25) mg/dL Est GFR (CKD-EPI)AfAm >90 (>60 ml/min/1.73 sqM) Est GFR (CKD-EPI)NonAf >90 (>60 ml/min/1.73 sqM) Glucose 129 H (74-99) mg/dL Calcium 9.6 (8.4-10.2) mg/dL Phosphorus 3.5 (2.5-4.5) mg/dL Magnesium 1.8 (1.6-2.3) mg/dL Total Bilirubin 0.7 (0.2-1.3) mg/dL GGT 98 H (15-73) U/L AST 38 (17-59) U/L ALT 43 (4-49) U/L Alkaline Phosphatase 66 (38-126) U/L Ammonia 15 (<30) umol/L Troponin I <0.012 (0.000-0.034) ng/mL Total Protein 6.5 (6.3-8.2) g/dL Albumin 4.5 (3.5-5.0) g/dL - Radiology Data Radiology results: report reviewed, image reviewed Disposition Clinical Impression: Tremor observed on examination, Gastritis Disposition: HOME SELF-CARE Condition: Stable Instructions (If sedation given, give patient instructions): Gastritis (ED), Tremors (ED) Additional Instructions: Call tomorrow morning at 8 AM to schedule plan with your primary care physician and the neurologist as discussed. Follow-up with your regular physician as sharla weiner. Return to the ER immediately if any symptoms worsen, new symptoms arise, or any other problems develop. Is patient prescribed a controlled substance at d/c from ED?: No Referrals: Baldomero Jacobo DO [Primary Care Provider] - 1-2 days Marlon Don MD [STAFF PHYSICIAN] - 08/20/22 Time of Disposition: 21:20
--- NOTE | 2022-08-18 19:58 | XR ---
EXAMINATION TYPE: XR chest 1V portable DATE OF EXAM: 08/18/2022 COMPARISON: 05/20/2021 HISTORY: Altered mental status TECHNIQUE: Single view FINDINGS: Heart is normal. Lungs are clear of infiltrate. No heart failure. There are no hilar masses . The bony thorax is intact. IMPRESSION: Normal chest. No change.
[2022-08-18 20:13] LABS: Basophils % (A) 1 %; Eosinophils # (A) 0.1 k/uL (0-0.7); Eosinophils % (A) 2 %; HCT 37.1 % (39.0-53.0); HGB 12.7 gm/dL (13.0-17.5); Lymphocytes # (A) 0.9 k/uL (1.0-4.8); Lymphocytes % (A) 12 %; MCH 33.5 pg (25.0-35.0); MCHC 34.3 g/dL (31.0-37.0); MCV 97.6 fL (80.0-100.0); Mean Platelet Volume 8.1; Monocytes # (A) 0.5 k/uL (0-1.0); Monocytes % (A) 6 %; Neutrophils # (A) 6.3 k/uL (1.3-7.7); Neutrophils % (A) 78 %; Platelet Count 282 k/uL (150-450)
[2022-08-18 20:21] LABS: INR 0.9 (<1.2); Prothrombin Time 10.1 sec (9.0-12.0)
[2022-08-18] MEDS ORDERED: MAGNESIUM SULFATE-D5W PMX 1 GM in DEXTROSE/WATER 1 100ML.BAG IVPB ONE (20:21)
[2022-08-18 20:22] LABS: ALT 43 U/L (4-49); AST 38 U/L (17-59); African American GFR (CKD) >90 (>60 ml/min/1.73 sqM); Albumin 4.5 g/dL (3.5-5.0); Alkaline Phosphatase 66 U/L (38-126); Anion Gap 12 mmol/L; Blood Urea Nitrogen 8 mg/dL (9-20); Calcium 9.6 mg/dL (8.4-10.2); Carbon Dioxide 24 mmol/L (22-30); Chloride 104 mmol/L (98-107); GGT 98 U/L (15-73); Glucose 129 mg/dL (74-99); Magnesium 1.8 mg/dL (1.6-2.3); Non-African American GFR(CKD) >90 (>60 ml/min/1.73 sqM); Phosphorus 3.5 mg/dL (2.5-4.5); Potassium 3.7 mmol/L (3.5-5.1); Sodium 140 mmol/L (137-145); Total Bilirubin 0.7 mg/dL (0.2-1.3); Total Protein 6.5 g/dL (6.3-8.2)
[2022-08-18] MEDS ORDERED: LORazepam 1 MG TAB PO STA (20:54)
--- NOTE | 2022-08-18 21:08 | CT ---
EXAMINATION TYPE: CT brain wo con DATE OF EXAM: 08/18/2022 COMPARISON: None HISTORY: New onset tremor CT DLP: 1200.4 mGycm Automated exposure control for dose reduction was used. Images of the brain obtained with no contrast. There is mild cerebral atrophy. There is no mass effect or midline shift. No sign of intracranial hem orrhage. The calvarium is intact. There is normal aeration of the mastoid sinuses. IMPRESSION: Negative unenhanced head CT scan. Mild atrophy.
[2022-08-18 21:20] LABS: Appearance,Urine Clear (Clear); Bilirubin,Urine Negative (Negative); Blood,Urine Negative (Negative); Color,Urine Yellow; Glucose,Urine (UA) 4+ (Negative); Ketones,Urine Trace (Negative); Leukocyte Esterase,Urine Negative (Negative); Nitrite,Urine Negative (Negative); Protein,Urine Trace (Negative); Specific Gravity,Urine 1.031 (1.001-1.035); Urobilinogen,Urine <2.0 mg/dL (<2.0)
[2022-08-18] MEDS ORDERED: ONDANSETRON 4 MG ODT STARTER PACK 2 TAB BTL PO STA (21:23)
[2022-08-18 21:30] LABS: Amphetamine Screen,Urine Not Detected (NotDetected); Barbiturate Screen,Urine Not Detected (NotDetected); Benzodiazepines Screen,Urine Not Detected (NotDetected); Cocaine Screen,Urine Not Detected (NotDetected); Methadone Screen, Urine Not Detected (NotDetected); Opiate Screen,Urine Not Detected (NotDetected); Oxycodone Screen, Urine Not Detected (NotDetected); Phencyclidine Screen,Urine Not Detected (NotDetected); Tricyclic Antidepressant,Urine Not Detected (NotDetected); Urn Cannabinoid Scrn Not Detected (NotDetected)
== END 2022-08-19 05:25 | disposition home or self-care (01) ==
LOC: EC 14:39
DX: K29.70 Gastritis, unspecified, without bleeding (principal); R25.1 Tremor, unspecified; Z86.73 Personal history of transient ischemic attack (TIA), and cerebral infarction without residual deficits; E11.9 Type 2 diabetes mellitus without complications; I10 Essential (primary) hypertension; F17.200 Nicotine dependence, unspecified, uncomplicated
CPT/HCPCS: 36415; 93005; 80053; 82140; 82977; 83735; 84100; 84484; 85025; 85610; 85730; 81003; 80306; 71045; 70450; 99285; 96365; J3475

== ENCOUNTER → 2022-08-22 | Outpatient (CLI) | payer BC, MEDICARE | END | disposition home or self-care (01) | LOC: LABWHC1 11:25 | DX: Z01.812 Encounter for preprocedural laboratory examination (principal) | CPT/HCPCS: 87070 ==

== ENCOUNTER → 2022-09-29 | Outpatient (CLI) | payer BC, MEDICARE ==
--- NOTE | 2022-09-29 12:18 | XR ---
EXAMINATION TYPE: XR lumbar spine 2 or 3V DATE OF EXAM: 09/29/2022 CLINICAL HISTORY: pain TECHNIQUE: Three views of the lumbar spine are submitted. COMPARISON: None. FINDINGS: There are 5 lumbar type vertebral bodies identified. The lumbar spine shows satisfactory alignment w ithout evidence of acute fracture or dislocation. Vertebral body heights are within normal limits. Mild scattered degenerative disc space narrowing and spondylosis. The overlying soft tissue appears unremarkable. IMPRESSION: No acute fracture or dislocation is seen in the lumbar spine. ICD 10 NO FRACTURE, INITIAL EVALUATION
== END | disposition home or self-care (01) ==
LOC: RADXRMAIN 11:31
DX: M54.16 Radiculopathy, lumbar region (principal)
CPT/HCPCS: 72100

== ENCOUNTER 2023-04-08 19:10 | Emergency (ER) | payer BC, MEDICARE ==
[2023-04-08 19:39] VITALS: BP 101/63; PULSE 101; RESP 20; TEMP 97.5
[2023-04-08] MEDS ORDERED: DIPH,PERTUS(ACELL)TETVAC-LF 0.5 ML VIAL IM ONE (20:34)
[2023-04-08] MEDS ORDERED: LIDOCAINE 1% INJ 10MG/ML (30 ML VIAL-PF) SQ ONE (20:34)
--- NOTE | 2023-04-08 20:38 | ED ---
General Adult HPI - General Chief complaint: Fall Stated complaint: rt foot laceration Time Seen by Provider: 04/08/23 20:02 Source: patient, RN notes reviewed, old records reviewed Mode of arrival: wheelchair Limitations: no limitations - History of Present Illness Initial comments: Well-appearing 62-year-old male presents to the emergency room with laceration to his right great toe. States that he was walking through the grass when he sustained the injury. States does have a stress fracture in the foot and has foot drop which caused the injury today. He did go to the urgent care was bandaged recommended to come to the emergency room due to the depth of the laceration. Denies any other injuries. Unsure of his tetanus shot is up-to-date. Does take an aspirin a day. -: hour(s) Location: right, lower extremity (great toe) Radiation: non-radiation Severity scale (1-10): 1 Consistency: now resolved Improves with: rest Associated Symptoms: denies other symptoms Treatments Prior to Arrival: other (urgent care dressing) - Related Data Home Medications Medication Instructions Recorded Confirmed Aspirin [Adult Low Dose Aspirin EC] 81 mg PO HS 03/24/19 08/18/22 Rosuvastatin [Crestor] 20 mg PO HS 03/24/19 08/18/22 oxyCODONE-APAP 10-325MG [Percocet 1 tab PO Q4HR PRN 03/24/19 08/18/22 10-325 mg] Albuterol Sulfate [Proventil Hfa] 2 puff INHALATION RT-Q6H PRN 09/23/21 08/18/22 Empagliflozin/Metformin HCl 2 tab PO BID 09/23/21 08/18/22 [Synjardy 5-500 mg Tablet] Losartan Potassium 100 mg PO DAILY 09/23/21 08/18/22 Umeclidinium Brm/Vilanterol Tr 1 puff INHALATION RT-DAILY 09/23/21 08/18/22 [Anoro Ellipta 62.5-25 Mcg INH] dilTIAZem HCL [Diltiazem HCl 12Hr 120 mg PO Q12HR 09/23/21 08/18/22 ER] hydroCHLOROthiazide 25 mg PO DAILY 09/23/21 08/18/22 Nicotine 21Mg/24Hr Patch [Habitrol] 1 patch TRANSDERM DAILY PRN 08/18/22 08/18/22 buPROPion SR [Wellbutrin SR] 150 mg PO BID 08/18/22 08/18/22 Previous Rx's Medication Instructions Recorded Cephalexin [Keflex] 500 mg PO Q6HR 5 Days #20 cap 04/08/23 Allergies Allergy/AdvReac Type Severity Reaction Status Date / Time No Known Allergies Allergy Verified 04/08/23 19:39 Review of Systems ROS Statement: Those systems with pertinent positive or pertinent negative responses have been documented in the HPI. ROS Other: All systems not noted in ROS Statement are negative. Past Medical History Past Medical History: COPD, CVA/TIA, Diabetes Mellitus, Hypertension, Osteoarthritis (OA) Additional Past Medical History / Comment(s): hx of colon polyps, herniated discs with back pain, neuropathy, tia, hemorrhoids, pain in legs. History of Any Multi-Drug Resistant Organisms: None Reported Past Surgical History: Orthopedic Surgery Additional Past Surgical History / Comment(s): colonoscopy, left elbow benign growth removed, varicose veins removed right leg, aortogram 09-24-21 Past Anesthesia/Blood Transfusion Reactions: No Reported Reaction Past Psychological History: No Psychological Hx Reported Smoking Status: Current every day smoker Past Alcohol Use History: Daily Past Drug Use History: None Reported - Past Family History Sister(s) Family Medical History: Cancer General Exam Limitations: no limitations General appearance: alert, in no apparent distress Head exam: Present: atraumatic, normocephalic, normal inspection Eye exam: Present: normal appearance. Absent: scleral icterus, conjunctival injection, periorbital swelling Respiratory exam: Absent: respiratory distress, accessory muscle use Cardiovascular Exam: Present: tachycardia Right Foot/Toe exam: Present: laceration (Approximately 2 cm laceration to the dorsal surface of great toe, no active bleeding.) Neurovascular tendon exam: Present: no vascular compromise. Absent: abnormal cap refill, extremity cold to touch, pallor Neurological exam: Present: alert, oriented X3 Psychiatric exam: Present: normal affect, normal mood Skin exam: Present: warm, dry, normal color. Absent: cyanosis, diaphoretic, pallor Course Vital Signs 04/08/23 19:35 Temperature 97.5 F L Pulse Rate 101 H Respiratory 20 Rate Blood Pressure 101/63 O2 Sat by Pulse 98 Oximetry Procedures - Laceration Laceration #1 Consent Obtained: verbal consent Indication: laceration Site: foot (right great toe) Size (cm): 3 Description: linear Depth: simple, single layer Anesthetic Used: lidocaine 1% Anesthesia Technique: local infiltration Pre-repair: wound explored, irrigated extensively Type of Sutures: nylon Size of Sutures: 4-0 Number of Sutures: 8 Technique: simple, interrupted Patient Tolerated Procedure: well, no complications Medical Decision Making - Medical Decision Making Was pt. sent in by a medical professional or institution (FLORENTIN Carmona, MUSICAL IN[employer]UMENTS ASSEMBLER, urgent care, hospital, or detention...) When possible be specific @ -urgent care Did you speak to anyone other than the patient for history (EMS, parent, family, police, friend...)? What history was obtained from this source @ -no Did you review nursing and triage notes (agree or disagree)? Why? @ -I reviewed and agree with nursing and triage notes Were old charts reviewed (outside hosp., previous admission, EMS record, old EKG, old radiological studies, urgent care reports/EKG's, detention records)? Report findings @ -No old charts were reviewed Differential Diagnosis (chest pain, altered mental status, abdominal pain women, abdominal pain men, vaginal bleeding, weakness, fever, dyspnea, syncope, headache, dizziness, GI bleed, back pain, seizure, CVA, palpatations, mental health, musculoskeletal)? @ -Laceration, fracture, abrasion, foreign body EKG interpreted by me (3pts min.). @ -n/a X-rays interpreted by me (1pt min.). @ -Yes, X-ray interpreted by me shows no evidence of fracture or foreign body. CT interpreted by me (1pt min.). @ -None done U/S interpreted by me (1pt. min.). @ -None done What testing was considered but not performed or refused? (CT, X-rays, U/S, labs)? Why? @ -None What meds were considered but not given or refused? Why? @ -None Did you discuss the management of the patient with other professionals (professionals i.e. FLORENTIN Carmona, [employer]ICAL IN[employer]UMENTS ASSEMBLER, lab, RT, psych nurse, social science manager, research psychologist, teacher, equal employment opportunity officer, showcase trimmer)? Give summary @ -No Was smoking cessation discussed for >3mins.? @ -No Was critical care preformed (if so, how long)? @ -No Were there social determinants of health that impacted care today? How? (Homelessness, low income, unemployed, alcoholism, drug addiction, transportation, low edu. Level, literacy, decrease access to med. care, correction, rehab)? @ -No Was there de-escalation of care discussed even if they declined (Discuss DNR or withdrawal of care, Hospice)? DNR status @ -No What co-morbidities impacted this encounter? (DM, HTN, Smoking, COPD, CAD, Cancer, CVA, ARF, Chemo, Hep., AIDS, mental health diagnosis, sleep apnea, morbid obesity)? @ -COPD, CVA, diabetes, hypertension, neuropathy, smoker Was patient admitted / discharged? Hospital course, mention meds given and route, prescriptions, significant lab abnormalities, going to OR and other pertinent info. @ -Discharged 62-year-old male presents with approximately 3cm laceration to his right great toe just below the nailbed. States that he was walking through the grass when he sustained the injury. States does foot drop which caused the injury today. Sent by urgent care due to depth on laceration. Wound was irrigated copiously with 500 mL of saline. 8 sutures to close the laceration. Patient was given a dose and prescribed Keflex. Tetanus shot was updated. Patient states he has decreased sensation due to neuropathy. X-ray interpreted by me shows no evidence of fracture or foreign body. Radiologist impression no evidence of acute osseous pathology. Minimal soft tissue swelling of the first digit. Joints preserved. Vascular sclerosis. Dorsal midfoot osteophytosis. Suggested 2 mm linear radiopaque foreign body within the plantar aspect of the forefoot only on the lateral view. No evidence of foreign body on physical exam. Bacitracin dressing was applied and patient was directed to follow up with his primary care doctor this week for reevaluation. Return to the emergency room with a [place] concerning symptoms. Patient can remember agreeable to this plan of care. Case discussed with Dr. Pinedo Undiagnosed new problem with uncertain prognosis? @ -No Drug Therapy requiring intensive monitoring for toxicity (Heparin, Nitro, Insulin, Cardizem)? @ -No Were any procedures done? @ -Laceration repair Diagnosis/symptom? @ -Right great toe laceration Acute, or Chronic, or Acute on Chronic? @ -Acute Uncomplicated (without systemic symptoms) or Complicated (systemic symptoms)? @ -Uncomplicated Side effects of treatment? @ -No Exacerbation, Progression, or Severe Exacerbation? @ -No Poses a threat to life or bodily function? How? (Chest pain, [place], [place], pneumonia, PE, COPD, DKA, ARF, appy, cholecystitis, CVA, Diverticulitis, Homicidal, Suicidal, threat to staff... and all critical care pts) @ -No Disposition Clinical Impression: Toe laceration Disposition: HOME SELF-CARE Condition: Good Instructions (If sedation given, give patient instructions): Care For Your Stitches (ED), Laceration (ED) Additional Instructions: Keep wound clean and dry. Place a Thin layer of bacitracin on wound daily for the next 2 days. Follow-up with the primary care doctor in 12-14 days for suture removal. Take antibiotics as prescribed to prevent infection. Return to the emergency room if any new or concerning symptoms. l Prescriptions: Cephalexin [Keflex] 500 mg PO Q6HR 5 Days #20 cap Is patient prescribed a controlled substance at d/c from ED?: No Referrals: Baldomero Jacobo DO [Primary Care Provider] - 1-2 days Time of Disposition: 21:37
--- NOTE | 2023-04-08 21:13 | XR ---
EXAMINATION TYPE: XR toes RT DATE OF EXAM: 04/08/2023 9:01 PM INDICATION: Patient age:Male; 62 years old; Reason for study: great toe; PHH. COMPARISON: Right foot radiograph 01/11/2020 TECHNIQUE: The first digit of the right foot was examined in the AP, oblique, and lateral projections . FINDINGS/IMPRESSION: No evidence of any acute osseous pathology. Minimal soft tissue swelling of the first digit. Joints are preserved. Vascular sclerosis. Dorsal midfoot osteophytosis. There is suggested 2 mm linear radio paque foreign body within the plantar aspect of the forefoot only on the lateral view. Clinical corre lation is recommended.
[2023-04-08] MEDS ORDERED: CEPHALEXIN 500 MG CAP PO STA (21:34)
[2023-04-08] MEDS ORDERED: BACITRACIN OINT 1 EACH PACKET TOPICAL ONE (21:50)
== END 2023-04-08 22:36 | disposition home or self-care (01) ==
LOC: EC 19:10
DX: S91.119A Laceration without foreign body of unspecified toe without damage to nail, initial encounter (principal); J44.9 Chronic obstructive pulmonary disease, unspecified; E11.9 Type 2 diabetes mellitus without complications; I10 Essential (primary) hypertension; M19.90 Unspecified osteoarthritis, unspecified site; Z86.73 Personal history of transient ischemic attack (TIA), and cerebral infarction without residual deficits; F17.200 Nicotine dependence, unspecified, uncomplicated; Z79.82 Long term (current) use of aspirin; Z79.899 Other long term (current) drug therapy; Z79.84 Long term (current) use of oral hypoglycemic drugs; Z23 Encounter for immunization; W01.0XXA Fall on same level from slipping, tripping and stumbling without subsequent striking against object, initial encounter
CPT/HCPCS: 73660; 90715; 99284; 90471; 12002; J2001

== ENCOUNTER → 2023-09-21 | Outpatient (CLI) | payer BC, MEDICARE ==
--- NOTE | 2023-09-21 09:49 | CTL ---
EXAMINATION TYPE: CT Low Dose Lung DATE OF EXAM ORDERED: 09/21/2023 HISTORY: Z12.2,Z87.891. Lung cancer screening. Current smoker, [address] DLP: 71.[address] CTDI: 2.3 mGy Automated exposure control for dose reduction was used. SCREENING VISIT: First screening visit COMPARISON: Chest radiograph 08/18/2022 TECHNIQUE: Low dose computed tomography scan was performed through the chest at 1 mm thick sections a nd reconstructed images in multiple planes at 1 mm and [address] DIAGNOSTIC QUALITY: Satisfactory FINDINGS: LUNG NODULES: Left lower lobe 4 mm pulmonary nodule (series 6, image 38). Medial right upper lobe 3 m m pulmonary nodule (series 6, image 21). Right middle lobe 3 mm pulmonary nodule (series 6, image 39) . LUNGS: COPD: Severity: Mild Fibrosis: Severity: None Lymph nodes: None Other findings: None RIGHT PLEURAL SPACE: Effusion: None Calcification: None Thickening: None Pneumothorax: None LEFT PLEURAL SPACE: Effusion: None Calcification: None Thickening: None Pneumothorax: None HEART: Heart Size: Normal Coronary Calcification: Small Pericardial Effusion: None OTHER FINDINGS: Upper abdomen: None Bony thorax: Multilevel degenerative changes of the thoracic spine. Supraclavicular region: None Other: None IMPRESSION: Few scattered pulmonary nodules measuring up to [address] LUNG RAD AND CT CHEST RECOMMENDATION: Lung-Rad 2 Benign Appearance or Behavior: Continue annual sc reening with LDCT in 12 months. S Modifier (other clinically significant findings): None
== END | disposition home or self-care (01) ==
LOC: RADCTMAIN 08:30
PROVIDERS: ATTEND Family Medicine
DX: Z12.2 Encounter for screening for malignant neoplasm of respiratory organs (principal); F17.210 Nicotine dependence, cigarettes, uncomplicated; R91.8 Other nonspecific abnormal finding of lung field
CPT/HCPCS: 71271

== ENCOUNTER → 2024-05-20 | Outpatient (CLI) | payer BC ==
--- NOTE | 2024-05-20 10:07 | XR ---
EXAMINATION TYPE: XR ribs LT w pa chest xray DATE OF EXAM: 05/20/2024 COMPARISON: 08/18/2022 INDICATION: Fall, left rib pain TECHNIQUE: Single frontal view of the chest is obtained. Left ribs are examined in 2 projections. FINDINGS: The heart size is normal. The pulmonary vasculature is normal. The lungs are clear. Left RIBS: No displaced rib fractures are evident. No pneumothorax is evident. Follow-up can be perfo rmed as clinically indicated. IMPRESSION: 1. No acute pulmonary process. 2. No acute left rib fractures identified.
== END | disposition home or self-care (01) ==
LOC: RADXRMAIN 09:13
PROVIDERS: ATTEND Family Medicine
DX: Z00.00 Encounter for general adult medical examination without abnormal findings (principal); R07.81 Pleurodynia; W19.XXXA Unspecified fall, initial encounter

== ENCOUNTER → 2024-10-04 | Outpatient (CLI) | payer BC ==
--- NOTE | 2024-10-04 10:40 | CTL ---
EXAMINATION TYPE: CT Low Dose Lung DATE OF EXAM ORDERED: 10/04/2024 COMPARISON: CT Low Dose Lung 09/21/2023 CLINICAL INDICATION: Male, 64 years old with history of Z12.2 ENCNTR SCREEN FOR MALIGNANT NEOPLASM OF RESP; PHH, Personal history of tobacco use., Lung cancer screening, History of Smoking/tobacco use. TECHNIQUE: Low dose computed tomography scan was performed through the chest at 1 mm thick sections a nd reconstructed images in multiple planes at 1 mm and [address] DLP: 99.[address] CTDI: 2.6 mGy Automated exposure control for dose reduction was used. CT DIAGNOSTIC QUALITY: Satisfactory FINDINGS: Nodules: Increase in size of left lower lobe solid 5.8 mm pulmonary nodule (series 6, image 36), previously me asured 3.8 mm. Stable right middle lobe 3.2 mm pulmonary nodule (series 6, image 42). Stable medial right upper lobe 3.7 mm pulmonary nodule (series 6, image 22). No new pulmonary nodules. LUNGS: COPD: Severity: Mild Fibrosis: Severity: None Lymph nodes: None Other findings: Linear scarring within the right lower lobe. RIGHT PLEURAL SPACE: Effusion: None Calcification: None Thickening: None Pneumothorax: None LEFT PLEURAL SPACE: Effusion: None Calcification: None Thickening: None Pneumothorax: None HEART: Heart Size: Normal Coronary Calcification: Mild Pericardial Effusion: None OTHER FINDINGS: Upper abdomen: None Bony thorax: DISH of the thoracic spine. Supraclavicular region: None Other: Minimal bilateral gynecomastia left greater than right. Mild atherosclerotic calcification of aorta and its branches. IMPRESSION: Increased size of left lower lobe 5.8 mm pulmonary nodule, previously measured 3.8 mm. Remaining pulm onary nodules measure less than 4 mm and are stable. CT LUNG RAD AND CT CHEST RECOMMENDATION: Lung-Rad 4A Suspicious: Follow-up 3 month LDCT or PET/CT may be used when there is a > 8 mm solid component. S Modifier (other clinically significant findings): None [facility], , 10/04/2024 10:38 AM
== END | disposition home or self-care (01) ==
LOC: RADCTMAIN 09:28
PROVIDERS: ATTEND Family Medicine
DX: Z12.2 Encounter for screening for malignant neoplasm of respiratory organs (principal); R91.8 Other nonspecific abnormal finding of lung field; Z87.891 Personal history of nicotine dependence
CPT/HCPCS: 71271

== ENCOUNTER → 2025-01-04 | Outpatient (CLI) | payer BC ==
--- NOTE | 2025-01-05 08:27 | CTL ---
EXAMINATION TYPE: CT Low Dose Lung DATE OF EXAM ORDERED: 01/04/2025 COMPARISON: Prior low dose lung screening CT October 04, 2024 and older studies CLINICAL INDICATION: Male, 64 years old with history of R91.1 SOLITARY PULMONARY NODULE R91.8 ABN FND ; PHH, Current smoker, 1 ppd x 40 years hx COPD, Lung cancer screening, History of Smoking/tobacco us e. TECHNIQUE: Low dose computed tomography scan was performed through the chest at 1 mm thick sections a nd reconstructed images in multiple planes at 1 mm and [address] DLP: 117.[address] CTDI: 3.4 mGy Automated exposure control for dose reduction was used. CT DIAGNOSTIC QUALITY: Satisfactory FINDINGS: Nodules: Stable 5 x 4 mm solid nodule axial image 186 left lower lobe. Stable right middle lobe 3 x 2 mm possibly calcified pulmonary nodule axial image 218. Stable medial right upper lobe 4 x 2 mm pulmonary nodule axial image 123. No new greater than 6 mm pu lmonary nodules. LUNGS: COPD: Severity: None Fibrosis: Severity: None Lymph nodes: Non- Other findings: Mild linear scarring right lower lung redemonstrated RIGHT PLEURAL SPACE: Effusion: None Calcification: None Thickening: None Pneumothorax: None LEFT PLEURAL SPACE: Effusion: None Calcification: None Thickening: None Pneumothorax: None HEART: Heart Size: Normal Coronary Calcification: Moderate Pericardial Effusion: New small to tiny circumferential effusion OTHER FINDINGS: Upper abdomen: None Bony thorax: Multilevel bridging osteophytes in the thoracic spine are redemonstrated. Supraclavicular region: None Other: None IMPRESSION: Stable small bilateral pulmonary nodules. No new or enlarging greater than [address] LUNG RAD AND CT CHEST RECOMMENDATION: Lung-Rad 2 Benign Appearance or Behavior: Continue annual sc reening with LDCT in 12 months. S Modifier (other clinically significant findings): None [facility], , 01/05/2025 8:25 AM
== END | disposition home or self-care (01) ==
LOC: RADCTMAIN 07:55
PROVIDERS: ATTEND Family Medicine
DX: R91.8 Other nonspecific abnormal finding of lung field (principal); F17.210 Nicotine dependence, cigarettes, uncomplicated
CPT/HCPCS: 71271

== ENCOUNTER 2025-04-25 08:39 | Emergency (ER) | payer BC ==
[2025-04-25 08:45] VITALS: RESP 18
--- NOTE | 2025-04-25 09:00 | ED ---
Head Injury HPI - General Chief complaint: Head Injury Stated complaint: head injury on thinners Time Seen by Provider: 04/25/25 09:00 Source: patient, RN notes reviewed Mode of arrival: ambulatory Limitations: no limitations - History of Present Illness Initial comments: 64-year-old male presented the ER for evaluation of head injury. Patient states he accidentally fell out of bed last night. He hit his head on a nearby metal garbage can. He reports a bleeding laceration to forehead. He denies loss of consciousness or blood thinner use. He does take baby aspirin daily. Tetanus status unknown. Patient does admit to consuming alcohol prior to going to bed last night. He denies headache, dizziness, lightheadedness, visual disturb ances, nausea, vomiting, no other injuries or complaints. Tetanus status unknown. - Related Data Home Medications Medication Instructions Recorded Confirmed Aspirin [Adult Low Dose Aspirin EC] 81 mg PO HS 03/24/19 08/18/22 Rosuvastatin [Crestor] 20 mg PO HS 03/24/19 08/18/22 oxyCODONE-APAP 10-325MG [Percocet 1 tab PO Q4HR PRN 03/24/19 08/18/22 10-325 mg] Albuterol Sulfate [Proventil Hfa] 2 puff INHALATION RT-Q6H PRN 09/23/21 08/18/22 Empagliflozin/Metformin HCl 2 tab PO BID 09/23/21 08/18/22 [Synjardy 5-500 mg Tablet] Losartan Potassium 100 mg PO DAILY 09/23/21 08/18/22 Umeclidinium Brm/Vilanterol Tr 1 puff INHALATION RT-DAILY 09/23/21 08/18/22 [Anoro Ellipta 62.5-25 Mcg INH] dilTIAZem HCL [Diltiazem HCl 12Hr 120 mg PO Q12HR 09/23/21 08/18/22 ER] hydroCHLOROthiazide 25 mg PO DAILY 09/23/21 08/18/22 Nicotine 21Mg/24Hr Patch [Habitrol] 1 patch TRANSDERM DAILY PRN 08/18/22 08/18/22 buPROPion SR [Wellbutrin SR] 150 mg PO BID 08/18/22 08/18/22 Previous Rx's Medication Instructions Recorded Cephalexin [Keflex] 500 mg PO Q6HR 5 Days #20 cap 04/08/23 Allergies/Adverse reactions: Allergies Allergy/AdvReac Type Severity Reaction Status Date / Time No Known Allergies Allergy Verified 04/25/25 08:45 Review of Systems ROS Statement: Those systems with pertinent positive or pertinent negative responses have been documented in the HPI. ROS Other: All systems not noted in ROS Statement are negative. Past Medical History Past Medical History: COPD, CVA/TIA, Diabetes Mellitus, Hypertension, Osteoarthritis (OA) Additional Past Medical History / Comment(s): hx of colon polyps, herniated discs with back pain, neuropathy, tia, hemorrhoids, pain in legs. History of Any Multi-Drug Resistant Organisms: None Reported Past Surgical History: Orthopedic Surgery Additional Past Surgical History / Comment(s): colonoscopy, left elbow benign growth removed, varicose veins removed right leg, aortogram 09-24-21 Past Anesthesia/Blood Transfusion Reactions: No Reported Reaction Past Psychological History: No Psychological Hx Reported Smoking Status: Current every day smoker Past Alcohol Use History: Daily Past Drug Use History: None Reported - Past Family History Sister(s) Family Medical History: Cancer General Exam Limitations: no limitations General appearance: alert, in no apparent distress Head exam: Present: normocephalic, other (4 cm superficial laceration mild bleeding to forehead.) Eye exam: Present: normal appearance, PERRL, EOMI. Absent: scleral icterus, conjunctival injection, periorbital swelling Pupils: Present: normal accommodation ENT exam: Present: normal exam, normal oropharynx, mucous membranes moist, TM's normal bilaterally, normal external ear exam, other (No raccoon eyes, Jimenez sign or hemotympanums.) Neck exam: Present: normal inspection. Absent: tenderness, meningismus, lymphadenopathy Respiratory exam: Present: normal lung sounds bilaterally. Absent: respiratory distress, wheezes, rales, rhonchi, stridor Cardiovascular Exam: Present: regular rate, normal rhythm, normal heart sounds. Absent: systolic murmur, diastolic murmur, rubs, gallop, clicks Extremities exam: Present: normal inspection, full ROM, normal capillary refill. Absent: tenderness, pedal edema, joint swelling, calf tenderness Neurological exam: Present: alert, oriented X3, CN II-XII intact Skin exam: Present: warm, dry, intact, normal color. Absent: rash Course Vital Signs 04/25/25 04/25/25 08:42 10:19 Temperature 97.6 F 97.8 F Pulse Rate 98 90 Respiratory 18 18 Rate Blood Pressure 124/74 125/78 O2 Sat by Pulse 98 98 Oximetry Procedures - Laceration Laceration #1 Consent Obtained: verbal consent Indication: laceration Site: face Size (cm): 4 Description: linear Depth: simple, single layer Pre-repair: wound explored, irrigated extensively, deep structures intact Type of Sutures: other (Dermal glue) Patient Tolerated Procedure: well Medical Decision Making - Medical Decision Making Was pt. sent in by a medical professional or institution (, [employer], ANALYTICAL RESEARCH PROGRAM MANAGER, urgent care, hospital, or alf...) When possible be specific @ -No Did you speak to anyone other than the patient for history (EMS, parent, family, police, friend...)? What history was obtained from this source @ -No Did you review nursing and triage notes (agree or disagree)? Why? @ -I reviewed and agree with nursing and triage notes Were old charts reviewed (outside hosp., previous admission, EMS record, old EKG, old radiological studies, urgent care reports/EKG's, alf records)? Report findings @ -No old charts were reviewed Differential Diagnosis (chest pain, altered mental status, abdominal pain women, abdominal pain men, vaginal bleeding, weakness, fever, dyspnea, syncope, headache, dizziness, GI bleed, back pain, seizure, CVA, palpatations, mental health, musculoskeletal)? @ -Contusion, hematoma, intracranial hemorrhage, skull fracture, laceration, concussion this list is not meant to be all-inclusive EKG interpreted by me (3pts min.). @ -Done X-rays interpreted by me (1pt min.). @ -None done CT interpreted by me (1pt min.). @ -None done U/S interpreted by me (1pt. min.). @ -None done What testing was considered but not performed or refused? (CT, X-rays, U/S, labs)? Why? @ -CT brain considered however Becker head trauma rule negative. Patient is agreeable. What meds were considered but not given or refused? Why? @ -None Did you discuss the management of the patient with other professionals (professionals i.e. , [employer], ANALYTICAL RESEARCH PROGRAM MANAGER, lab, RT, psych nurse, social service assistant, sports lawyer, teacher, chief procurement officer, case folder)? Give summary @ -No Was smoking cessation discussed for >3mins.? @ -No Was critical care preformed (if so, how long)? @ -No Were there social determinants of health that impacted care today? How? (Homelessness, low income, unemployed, alcoholism, drug addiction, transportation, low edu. Level, literacy, decrease access to med. care, senior living, rehab)? @ -No Was there de-escalation of care discussed even if they declined (Discuss DNR or withdrawal of care, Hospice)? DNR status @ -No What co-morbidities impacted this encounter? (DM, HTN, Smoking, COPD, CAD, Cancer, CVA, ARF, Chemo, Hep., AIDS, mental health diagnosis, sleep apnea, morbid obesity)? @ -None Was patient admitted / discharged? Hospital course, mention meds given and route, prescriptions, significant lab abnormalities, going to OR and other pertinent info. @ -Discharge. 64-year-old male presented the ER for evaluation of head injury. Vital signs stable. Patient in no signs acute distress nontoxic-appearing. No acute neurological findings on exam. Patient ANO x 3. Exam remarkable for a 4 cm superficial laceration to forehead. There is mild bleeding noted. Becker head trauma rule negative. Patient is agreeable to forego CT scan at this time. Patient provided Tylenol for discomfort. Tetanus updated. Let solution placed over laceration to control bleeding. Bleeding ceased upon reevaluation and wound was approximated with Dermabond. Wound care discussed. I advise close follow-up with PCP for reevaluation next 1 to 2 days. Patient is eager for discharge upon reevaluation and requesting food. Return parameters discussed. Patient discharged stable condition. Patient verbally expressed understanding agree with care plan. Case discussed with ED attending, Dr. Pritchard Undiagnosed new problem with uncertain prognosis? @ -No Drug Therapy requiring intensive monitoring for toxicity (Heparin, Nitro, Insulin, Cardizem)? @ -No Were any procedures done? @ -Yes, laceration repair Diagnosis/symptom? @ -Minor head trauma/laceration Acute, or Chronic, or Acute on Chronic? @ -Acute Uncomplicated (without systemic symptoms) or Complicated (systemic symptoms)? @ -Uncomplicated Side effects of treatment? @ -No Exacerbation, Progression, or Severe Exacerbation? @ -No Poses a threat to life or bodily function? How? (Chest pain, USA, ID, pneumonia, PE, COPD, DKA, ARF, appy, cholecystitis, CVA, Diverticulitis, Homicidal, Suicidal, threat to staff... and all critical care pts) @ -Unlikely Disposition Clinical Impression: Laceration, Minor head trauma Disposition: HOME SELF-CARE Condition: Stable Instructions (If sedation given, give patient instructions): Skin Adhesive Care (ED) Additional Instructions: Keep dermal glue dry for approximately 24 hours. Follow-up with PCP in the next 1 to 2 days for reevaluation. Return to the ER for any new or worsening concerns. You may take [id number] ibuprofen and Tylenol for pain control Is patient prescribed a controlled substance at d/c from ED?: No Referrals: Baldomero Jacobo DO [Primary Care Provider] - 1-2 days Time of Disposition: 10:08
[2025-04-25] MEDS: DIPH,PERTUS(ACELL)TETVAC-LF 0.5 ML VIAL IM ONE (09:05)
[2025-04-25] MEDS: TOPICAL SKIN ADHESIVE 1 EACH AMP TOPICAL ONE (09:05)
[2025-04-25] MEDS: ACETAMINOPHEN TAB 325 MG TAB PO STA (09:06)
[2025-04-25] MEDS: LIDOCAINE/EPINEPHR/TETRACAINE 5 ML BOTTLE TOPICAL ONE (09:29)
[2025-04-25 10:22] VITALS: BP 125/78; PULSE 90; TEMP 97.8
== END 2025-04-25 10:19 | disposition home or self-care (01) ==
LOC: EC 08:39
DX: S01.81XA Laceration without foreign body of other part of head, initial encounter (principal); F17.200 Nicotine dependence, unspecified, uncomplicated; Z23 Encounter for immunization; W06.XXXA Fall from bed, initial encounter
CPT/HCPCS: 12013; 90471; 90715; 99283